=== PATIENT | female | born 1990 | race African-American/Black ===

== ENCOUNTER 2020-04-18 11:44 | Emergency (ER) | payer SELFPAY ==
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
[2020-04-18 11:49] VITALS: BP 142/92; PULSE 96; RESP 18; TEMP 36.3; O2SAT 100
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
[2020-04-18] MEDS: CYCLOBENZAPRINE HCL 10 MG TABLET PO (12:33)
[2020-04-18] MEDS: IBUPROFEN 600 MG TABLET PO (12:33)
[2020-04-18 13:32] VITALS: BP 128/88; PULSE 88; RESP 20; O2SAT 100
== END 2020-04-18 13:34 | disposition home or self-care (01) ==
LOC: ANHED 13:26
PROVIDERS: Emergency Provider Emergency Medicine
DX: S16.1XXA Strain of muscle, fascia and tendon at neck level, initial encounter (principal); V49.40XA Driver injured in collision with unspecified motor vehicles in traffic accident, initial encounter
CPT/HCPCS: 72040; 99283; A9270